=== PATIENT | female | born 1935 | race Hispanic/Latino ===

== ENCOUNTER → 2020-05-23 | Outpatient (CLI) | payer MEDICARE ==
[~2020-05-23] VITALS: Ht 149.9 cm; Wt 44.9 kg
[2020-05-23 11:24] LABS: BASOPHILS % (AUTO) 0.5 % (0.0-5.0); EOSINOPHILS % (AUTO) 0.8 % (0.0-8.0); HEMATOCRIT 30.9 % (36-48); LYMPHOCYTES % (AUTO) 30.2 % (21.0-51.0); MEAN CORPUSCULAR HGB CONC 31.7 g/dL (32.0-36.0); MONOCYTES % (AUTO) 4.6 % (3.0-13.0); NEUTROPHILS % (AUTO) 63.6 % (40.0-77.0); PLATELET COUNT (AUTO) 312 K/uL (130-400); RED BLOOD CELL COUNT(AUTO) 3.77 MIL/uL (4.00-5.50); RED CELL DISTRIBUTION WIDTH 14.6 % (11.0-15.5); WHITE BLOOD COUNT (AUTO) 7.4 K/uL (4.8-10.8)
[2020-05-23 11:33] LABS: CREATININE 1.5 mg/dL (0.5-1.5); POTASSIUM 3.7 mmol/L (3.5-5.1)
[2020-05-28 15:25] VITALS: BP 163/77
== END | disposition home or self-care (01) ==
LOC: DAH 10:00 → EDSTATUS 06-05 07:30
PROVIDERS: ATTEND Otolaryngology Plastic Surgery within the Head & Neck
DX: Z01.818 Encounter for other preprocedural examination (principal); Z20.822 Contact with and (suspected) exposure to COVID-19; D14.1 Benign neoplasm of larynx; I25.10 Atherosclerotic heart disease of native coronary artery without angina pectoris; I10 Essential (primary) hypertension; E11.9 Type 2 diabetes mellitus without complications; E89.0 Postprocedural hypothyroidism; Z98.890 Other specified postprocedural states; Z91.018 Allergy to other foods
CPT/HCPCS: 36415; 80048; 85025; 93005; C9803; U0003

== ENCOUNTER 2021-02-05 06:17 | Day surgery (SDC) | payer MEDICARE ==
[2021-02-01 11:45] LABS: BASOPHILS % (AUTO) 0.3 % (0.0-5.0); EOSINOPHILS % (AUTO) 2.4 % (0.0-8.0); HEMATOCRIT 31.7 % (36-48); LYMPHOCYTES % (AUTO) 24.2 % (21.0-51.0); MEAN CORPUSCULAR HEMOGLOBIN 27.4 pg (27.0-33.0); MEAN CORPUSCULAR HGB CONC 32.8 g/dL (32.0-36.0); MEAN CORPUSCULAR VOLUME 83.4 fL (79-99); MONOCYTES % (AUTO) 5.7 % (3.0-13.0); NEUTROPHILS % (AUTO) 67.1 % (40.0-77.0); PLATELET COUNT (AUTO) 297 K/uL (130-400); RED CELL DISTRIBUTION WIDTH 13.4 % (11.0-15.5); WHITE BLOOD COUNT (AUTO) 7.5 K/uL (4.8-10.8)
[2021-02-01 11:53] LABS: CREATININE 2.3 mg/dL (0.5-1.5); POTASSIUM 3.1 mmol/L (3.5-5.1)
[2021-02-04 11:18] VITALS: BP 127/71
[2021-02-05] VITALS (16 sets, daily range): BP systolic 120–233; BP diastolic 51–97
[~2021-02-05] VITALS: Ht 149.9 cm; Wt 37.2 kg
[~2021-02-05 06:17] MED LIST: AMLO-257 PO; CALC-1038 PO; CARV6.25 PO; CHOL500051 PO; CLOP75TA32 PO; FERR-72 PO; FOLIC ACID PO; LEVO88CA4 PO; OMEP20TA2 PO; UBID100C45 PO; VITAMIN B12 PO
[2021-02-05] MEDS ORDERED: LIDOCAINE 1%-EPI 1:100,000 20 ML VIAL IJ SCH (07:00)
[2021-02-05] MEDS ORDERED: LIDOCAINE PF 100MG/5ML (2%) SYRINGE 5ML ONE (07:19)
[2021-02-05] MEDS ORDERED: SUCCINYLCHOLINE CHLORIDE 20 MG/ML 10 ML VIAL ONE (07:19)
[2021-02-05] MEDS ORDERED: ONDANSETRON 4MG INJ ONE (07:20)
[2021-02-05] MEDS ORDERED: FENTANYL CITRATE PF 50 MCG/1 ML 2ML VIAL ONE (07:20)
[2021-02-05] MEDS ORDERED: PROPOFOL 10 MG/ML 20ML VIAL IV ONE (07:20)
[2021-02-05] MEDS ORDERED: ROCURONIUM 10MG/1ML SYR 10 MG/ML ML ONE (07:20)
[2021-02-05] MEDS ORDERED: GLYCOPYRROLATE 1 MG/5 ML SYRINGE ONE (07:44)
[2021-02-05] MEDS: LACTATED RINGERS 1000ML 1,000 ML IV ONE (07:58)
[2021-02-05] MEDS: LIDOCAINE HCL/EPINEPHRINE 30 ML VIAL IJ SCH (08:06)
[2021-02-05] MEDS: EPINEPHRINE 1 MG/ML 30ML VIAL IJ ONE (08:07)
[2021-02-05] MEDS ORDERED: EPHEDRINE SULFATE 50 MG/ML AMPULE ONE (08:13)
[2021-02-05] MEDS: HYDRALAZINE 20MG/ML VIAL ONE (09:08)
[2021-02-05] MEDS: APAP/CODEINE 120/12MG 5ML ONE (09:55)
[2021-02-05] MEDS ORDERED: ACETAMINOPHEN WITH CODEINE 1 TAB TAB PO PRN (10:30)
== END 2021-02-05 10:40 | disposition home or self-care (01) ==
LOC: DAH 06:17
PROVIDERS: ATTEND Otolaryngology Plastic Surgery within the Head & Neck
DX: D14.1 Benign neoplasm of larynx (principal); D10.9 Benign neoplasm of pharynx, unspecified; F03.90 Unspecified dementia, unspecified severity, without behavioral disturbance, psychotic disturbance, mood disturbance, and anxiety; Z86.73 Personal history of transient ischemic attack (TIA), and cerebral infarction without residual deficits; Z92.3 Personal history of irradiation; Z79.899 Other long term (current) drug therapy; Z20.822 Contact with and (suspected) exposure to COVID-19
CPT/HCPCS: 31541; 36415; 80048; 85025; 87635; 88305; 88341; 88342; 93005; A4215; A4221; A4222; A4223; A4663; A6260; C9803; J0171; J0330; J0360; J2001; J2405; J2704; J3010; J3490 ×2; J7120